=== PATIENT | male | born 1985 | race African-American/Black ===

== ENCOUNTER 2017-11-30 23:56 | Emergency (ER) | payer SELFPAY | END 2017-12-01 00:56 | disposition home or self-care (01) | LOC: D.ER 23:56 | DX: K08.89 Other specified disorders of teeth and supporting structures (principal); K02.9 Dental caries, unspecified; K04.7 Periapical abscess without sinus; F17.200 Nicotine dependence, unspecified, uncomplicated ==

== ENCOUNTER 2020-07-20 15:04 | Emergency (ER) | payer SELFPAY ==
[~2020-07-20] VITALS: Ht 188 cm; Wt 81.8 kg
[2020-07-20 15:32] VITALS: Ht 188 cm; Wt 81.8 kg
[2020-07-20] MEDS ORDERED: ZOFRAN ODT4 MG/UDTAB PO (17:06)
[2020-07-20] MEDS ORDERED: HYDROCODON-ACET15 ML PO (17:06)
[2020-07-20] MEDS ORDERED: AUGMENTIN ES-6125 ML PO (17:06)
[2020-07-21 02:51] VITALS: BP 118/76
== END 2020-07-20 19:50 | disposition home or self-care (01) ==
LOC: D.ER 15:04
DX: S16.1XXA Strain of muscle, fascia and tendon at neck level, initial encounter (principal); S06.9X9A Unspecified intracranial injury with loss of consciousness of unspecified duration, initial encounter; S02.609A Fracture of mandible, unspecified, initial encounter for closed fracture; Y04.8XXA Assault by other bodily force, initial encounter; R51.9 Headache, unspecified; R11.2 Nausea with vomiting, unspecified